=== PATIENT | male | born 1995 | race Caucasian/White ===

== ENCOUNTER 2016-07-23 12:55 | Emergency (ER) | payer SELFPAY ==
[2016-07-23] MEDS ORDERED: IBUPROFEN 600 MG TABLET ONE (14:46)
[2016-07-23] MEDS ORDERED: ACETAMINOPHEN 325 MG TABLET ONE (14:46)
== END 2016-07-23 15:06 | disposition home or self-care (01) ==
LOC: ED 12:55
DX: R59.9 Enlarged lymph nodes, unspecified (principal); R68.84 Jaw pain; F17.210 Nicotine dependence, cigarettes, uncomplicated
CPT/HCPCS: 99283 ×2; A9270 ×2